=== PATIENT | female | born 1995 | race Caucasian/White ===

== ENCOUNTER 2016-11-18 20:21 | Emergency (ER) | payer OTHER ==
[2017-06-21] MEDS ORDERED: FYCOMPA4 MG PO (04:41)
[2017-06-21] MEDS ORDERED: KEPPRA500 MG PO (04:41)
[2017-06-21] MEDS ORDERED: LINZESS145 MCG PO (04:43)
[2017-06-21] MEDS ORDERED: SPRINTEC 28 DA1 EACH PO (04:43)
[2017-06-21] MEDS ORDERED: LORADAMED10 MG PO (04:43)
[2017-06-21] MEDS ORDERED: TROKENDI XR200 MG PO (04:44)
[2017-06-21] MEDS ORDERED: VENLAFAXINE HCL50 MG PO (04:44)
[2017-06-21] MEDS ORDERED: ZONISAMIDE100 MG PO (04:45)
[2017-06-22] MEDS ORDERED: DIASTAT 2.5 MG2.5 MG PR (10:25)
[2017-06-22] MEDS ORDERED: FYCOMPA4 MG PO (11:05)
[2017-06-22] MEDS ORDERED: KEPPRA500 MG PO (11:06)
[2017-06-22] MEDS ORDERED: LINZESS145 MCG PO (11:06)
[2017-06-22] MEDS ORDERED: NORGESTIMATE-E1 EACH PO (11:07)
[2017-06-22] MEDS ORDERED: TROKENDI XR200 MG PO (11:08)
[2017-06-22] MEDS ORDERED: VENLAFAXINE HCL25 MG PO (11:10)
[2017-06-22] MEDS ORDERED: ZONISAMIDE100 MG PO (11:11)
== END 2016-11-18 21:48 | disposition home or self-care (01) ==
LOC: ER1 20:21
DX: N39.0 Urinary tract infection, site not specified (principal); Z88.8 Allergy status to other drugs, medicaments and biological substances
CPT/HCPCS: 81001; 87086; 99283